=== PATIENT | female | born 1930 | race Caucasian/White ===

== ENCOUNTER 2016-05-25 23:38 | Emergency (ER) | payer MEDICARE, OTHER ==
[2016-05-25 22:39] LABS: BASOPHILS 0.3 %; BASOPHILS ABSOLUTE 0.02 10/3/uL (0.0-0.16); EOSINOPHILS 2.7 %; EOSINOPHILS ABSOLUTE 0.16 10/3/uL (0.0-0.53); HEMATOCRIT 40.8 % (36.0-48.0); HEMOGLOBIN 13.5 g/dL (12.0-16.0); LYMPHOCYTES 52.5 %; MEAN CORPUS HGB CONC 33.1 g/dL (32.0-36.0); MEAN CORPUSCULAR VOLUME 90.7 fL (80-100); MEAN PLATELET VOLUME 9.5 fL (9.2-13.0); MONOCYTES 9.1 %; MONOCYTES ABSOLUTE 0.54 10/3/uL (0.21-1.20); NEUTROPHILS 35.4 %; NEUTROPHILS ABSOLUTE 2.09 10/3/uL (2.02-8.40); PLATELET COUNT 177 10/3/uL (150-400); RBC DISTRIBUTION WIDTH 14.3 % (12.0-16.0); WHITE BLOOD CELLS 5.9 10/3/uL (4.5-10.5)
[2016-05-25 22:41] LABS: MANUAL DIFF NO %
[2016-05-25 22:49] LABS: PROTIME (NOT ORD) 12.9 SEC (12.0-14.5)
[2016-05-25 22:55] LABS: BUN (BLOOD UREA NITROGEN) 19 MG/DL (6-23); CALCIUM, SERUM 9.7 MG/DL (8.5-10.4); CHEST PAIN PROFILE TAT 0 Hrs 22 Mins; CHLORIDE, SERUM 107 MMOL/L (96-112); CO2 (CARBON DIOXIDE) 26 MMOL/L (24-34); CREATININE 0.88 MG/DL (0.55-1.02); GFR AFRICAN AMERICAN 70 ML/MIN (>=60); GFR NON AFRICAN AMERICAN 60 ML/MIN (>=60); GLUCOSE, SERUM 119 MG/DL (60-99); POTASSIUM, SERUM 3.4 MMOL/L (3.5-5.3); SODIUM, SERUM 144 MMOL/L (135-148); TROPONIN I <0.02 NG/ML (<0.05)
[2016-05-25 22:57] LABS: PARTIAL THROMBO TIME 21.1 SEC (22.5-37.2)
[2016-05-25 23:35] LABS: ASCORBIC ACID (UR NOT ORDER) 40 (NEG); BILIRUBIN, URINE NEGATIVE (NEG); ER URINALYSIS TAT 0 Hrs 00 Mins; KETONE, URINE NEGATIVE (NEG); LEUKOCYTE ESTERASE(NOT OR LARGE (NEG); NITRITE (URINE) NEG (NEG); WBC (NOT ORDERED) (RFLEX) 45 (0-5)
[~2016-05-25 23:38] MED LIST: ACET500CAP PO; ACTONEL35 MG PO; AMITIZA8 MCG PO; AMOXIL875 MG PO; ARICEPT10 PO; ASAB PO; B121000P IM; B12100T PO; CARDCD300 PO; CARTIA XT300 MG/24 PO; CONSTULOSE PO; CYANO1000T PO; DCN100 PO; DIOVAN HC1 PO; DSS PO; ERYTHROMYCIN O3.5 G1 OPH; FISH-EPA1000 MG PO; FOSAMAX35 MG PO; GLUCPH PO; HALF81 PO; K-TABS10 MEQ PO; KLONO5 PO; KLOR-CON M1010 MEQ PO; LACTULOSE PO; LIOR10 PO; LIPITOR10 PO; LOVAZA1 GM PO; MACROBID PO; METHOC500B PO; MIRALAXPKT PO; MULTIVIT/MIN PO; NO MED LIST; NORCO1 TA1 PO; PRILO PO; SINGULAIR1 PO; TAZTIA PO; TIAZA3 PO; TRAZ100 PO; ULTRAM50 PO; VESICARE5 PO; VITC500 PO; VITD PO; ZANTAC300 MG PO; ZOL100 PO; [UNRECOGNIZED DRUG - OTHER] OT
== END 2016-05-26 01:30 | disposition home or self-care (01) ==
LOC: ER 23:38
PROVIDERS: Emergency Medicine
DX: N39.0 Urinary tract infection, site not specified (principal); I10 Essential (primary) hypertension; J45.909 Unspecified asthma, uncomplicated; F03.90 Unspecified dementia, unspecified severity, without behavioral disturbance, psychotic disturbance, mood disturbance, and anxiety; K21.9 Gastro-esophageal reflux disease without esophagitis; E11.9 Type 2 diabetes mellitus without complications; Z79.82 Long term (current) use of aspirin; Z79.899 Other long term (current) drug therapy
CPT/HCPCS: 71020; 74176; 80048; 81001; 83690; 83735; 83880; 84484; 85025; 85610; 85730; 87086; 93005; 96372; 99285; A9270-GY